=== PATIENT | male | born 2005 | race Caucasian/White ===

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

== ENCOUNTER → 2024-11-08 | Outpatient (CLI) | payer OTHER, BC, SELFPAY ==
--- OUTSIDE RECORDS SUMMARY | 2024-11-08 21:23 | XMS RPT_ITS | CCD ---
Author Organization [facility] Care Team Providers Care Fibreglass Laminator Name Role Phone Dr. Fernando Rabago Primary Care Provider Dr. Fernando Rabago Referring Provider [phone] ALAN Coleman Attending Provider [phone] Fernnado Rabago Referring Unavailable Vaccariello, Fernando Primary Care Unavailable Timothy Coleman Attending Unavailable Vaccariello, Fernando Referring Unavailable Vaccariello, Fernando Primary Care Unavailable David PHILLIPS, Timothy Attending Unavailable Vaccariello, Fernando Primary Care Unavailable Karla PARKING ENFORCER, Markus Parks Referring Unav ailable Karla PARKING ENFORCER, Markus Parks Attending Unav ailable Vaccariello, Fernando Referring Unavailable Vaccariello, Fernando Primary Care Unavailable Timothy Coleman Attending Unavailable No, Physician Primary Care Provider Unavailabl MARKUS Kellogg Primary Care Unavailable RUBEN, MARELY BALBUENA Referring Unavailab le RUBEN, MAREYL BALBUENA Attending Unavailab le RUBEN, MARELY BALBUENA Referring Unavailab le RUBEN, MARELY BALBUENA Attending Unavailab MARKUS Rodriguez Primary Care Unavailable Dr. Fernando Rabago MD Primary Care Provider Dr. Fernando Rabago MD Referring Provider Gene Khan Attending Provider Problems Problem Classification Problem Date Documented Da te Episodic/Chronic Essential hypertension (1 source) Hypertensive disorder; Translations: [Essential (primary) hypertension] 11-08-2024 Chronic Open wounds of extremities (4 sources) Laceration of right index finger; Translations: [Laceration without foreign body of right index finger without damage to nail, initial encounter] Onset: 11-09-2022 11-03-2022 Episodic Other upper respiratory infections (1 source) Sore throat symptom; Translations: [Acute pharyngitis, unspecified] 11-08-2024 Episodic Spondylosis; intervertebral disc disorders; other back problems (2 sources) Radiculopathy, cervical region; Translations: [Radiculopathy, cervical region] Onset: 03-08-2024 Episodic Superficial injury; contusion (3 sources) Foreign body - finger; Translations: [Superficial foreign body of unspecified finger, initial encounter] Onset: 11-09-2022 11-03-2022 Episodic Results Test Name Value Interpretation Reference Range Facility MR CERVICAL SPINE WITHOUT CO NTRASTon 03-08-2024 MR CERVICAL SPINE WITHOUT CONTRAST EXAMINATION: MRI cervical spine 03/08/2024 HISTORY: ORDERING SYSTEM PROVIDED HISTORY: Myelopathy, acute, cervical spine, TECHNOLOGIST PROVIDED HISTORY: Injury/Trauma Reason for exam: pinching and shooting pain on rt side of neck into rt shoulder Encounter Type: Subsequent/Follow-up Mechanism of injury: football ORDERING SYSTEM PROVIDED DIAGNOSIS CODES: M54.12 Cervical radiculopathy, acute COMPARISON STUDY: Radiographs cervical spine 03/06/2024. TECHNIQUE: Sagittal T1, T2, STIR, axial T2 and T2 gradient echo images of the cervical spine were obtained. 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 There is also fusion of the C2-3 facet joints bilaterally. There is mild anterolisthesis of C3 on C4 of 2 mm again seen. However, there is no MRI evidence of a ligamentous injury. No compression fracture is seen. No prevertebral soft tissue swelling. There is straightening of the normal cervical lordosis. There is mild disc desiccation at the C3-4 and C4-5 level. The bone marrow signal intensity is age-appropriate. The craniovertebral junction appears within normal limits. C2-C3 level: No significant disc protrusion, spinal canal stenosis, or foraminal narrowing is seen. C3-4 level: No significant disc protrusion, spinal canal stenosis, or foraminal narrowing is seen. C4-5 level: No significant disc protrusion, spinal canal stenosis, or foraminal narrowing is seen. C5-6 level: No significant disc protrusion, spinal canal stenosis, or foraminal narrowing is seen. C6-7 level: No significant disc protrusion, spinal canal stenosis, or foraminal narrowing is seen. C7-T1 level: No significant disc protrusion, spinal canal stenosis, or foraminal narrowing is seen. The signal intensity of the cervical spinal cord appears grossly within normal limits. No paraspinal muscle edema is seen. IMPRESSION: 1. No significant disc protrusion, spinal canal stenosis, foraminal narrowing is seen. 2. There is mild anterolisthesis of C3 on C4 of 2 mm, but there is no MRI evidence of a ligamentous injury and this is of doubtful clinical significance. 3. There is straightening of the normal cervical lordosis. This may be related to patient positioning for this study or could be related to an underlying muscular spasm. 4. 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 Workstation ID: [id number] Dictated by: TOM CLAROS on [facility] Mar 09, 2024 9:02:57 AM EDT Transcribed by: TOM CLAROS on [facility] Mar 09, 2024 9:02:57 AM EDT Finalized by: TOM CLAROS on [facility] Mar 09, 2024 9:02:57 AM EDT Normal [facility] Comment on above: Order Comment: Injur y/Trauma or Illness?:Injury/Trauma How long have you had these symptoms (acute/chronic)?:Chronic Reason for exam?:pinching and shooting pain on rt side of neck into rt shoulder Type of Exam?:Subsequent/Follow-up Mechanism of injury?:football XR CERVICAL SPINE AP/LATon 1 XR CERVICAL SPINE AP/LAT EXAMINATION: XR CERVICAL SPINE AP/LAT DATE: 03/06/2024. HISTORY: cervical radiculopathy Injury/Trauma or Illness?:Injury/Trauma How long have you had these symptoms (acute/chronic)?:Acute Reason for exam?:cervical radiculopathy History of cancer?:n Surgeries, chemotherapy, or radiation?:n M54.12 Cervical radiculopathy COMPARISON: Subsequently performed MRI of the cervical spine from [facility] on 03/08/2024 was reviewed. No antecedent studies of the cervical spine are available for correlation. TECHNIQUE: AP, lateral, and swimmer's lateral views were submitted. FINDINGS: Seven cervical segments are described. Congenital fusion of C2-3 is are shown. Vertebral body heights are well maintained throughout the cervical region. Reversal of cervical lordosis is shown. No fracture or wendi bone destruction. Prevertebral soft tissues appear normal. No cervical rib. Visualized lung apices are clear. IMPRESSION: 1. 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 2. Reversal of cervical lordosis could relate to muscle spasm or simply positioning. PRR/lab Workstation ID: [id number] Dictated by: ILAN STEELE on [facility] Mar 09, 2024 10:21:56 AM EDT Transcribed by: AARON ALLEN on WedMar 09, 2024 10:30:12 AM EDT Finalized by: ILAN STEELE on [facility] Mar 09, 2024 2:30:19 PM EDT Normal [facility] Comment on above: Order Comment: Injur y/Trauma or Illness?:Injury/Trauma How long have you had these symptoms (acute/chronic)?:Acute Reason for exam?:cervical radiculopathy History of cancer?:n Surgeries, chemotherapy, or radiation?:n Type of Exam?:Initial Mechanism of injury?:football injury Sickle Hgb Solubilityon 11-16 HgbSOL,SICKLE Negative Normal Negative [facility] Comment on above: Result Comment: Sinc e a variety of conditions and other abnormal hemoglobins in addition to Hemoglobin S may give false- positive results, positive Hemoglobin Solubility tests should be confirmed by hemoglobin fractionation testing. Performed at: [facility] [address] [id number] Fleet Maintenance Foreman: Berhane Jung PhD, Phone: [phone] Performed By: #### [id number] #### [facility] [address] [place] [address], [address] Hemoglobin S Solubility test Ql (Bld)Ordered By: Markus Acosta on 12-11-2022 Hemoglobin S Ql (Bld) Negative Negative [facility] Comment on above: Since a variety of c onditions and other abnormalhemoglobins in addition to Hemoglobin S may give false-positive results, positive Hemoglobin Solubility testsshould be confirmed by hemoglobin fractionation testing.Performed at: [facility] [address] [id number] Director: Berhane Jung PhD, Phone: [phone] Finger(s) Min 2 Viewson 10-16 Finger(s) Min 2 Views [facility] [address] [place] [address] Finger(s) Min 2 Views MR#: [id number] Acct: [id number] Name: JAVIER ZULETA Rep #: [id number] : 2005 M 17 From: Cris Almanza MD PCP: Dr. Fernando Rabago MD Status: REG AMB Study: Finger(s) Min 2 Views Date of Exam: 11/03/22 Exam# [id number] Ordering Dr: Timothy Hernandez INDICATION: staple gun hit tip of right index finger EXAMINATION/TECHNIQUE: X-RAY - RIGHT HAND XR Fingers Min 2 Views 2 VIEWS COMPARISON: FINDINGS: SOFT TISSUES: No soft tissue swelling or gas. No radiopaque foreign body. BONES/JOINTS: No acute fracture or subluxation.. Normal alignment. Preservation of the joint space.. No sclerotic or destructive changes observed. RAD/Finger(s) Min 2 Views IMPRESSION: Negative. Electronically Signed: Cris Almanza MD at 9:17 EDT , CC: ALAN Hernandez; Dr. Fernando Rabago MD Post Office Markup Clerk: Signed Normal [facility] Office Visit Reporton 2022 Office Visit Report [facility] [address] [place] [address] OFFICE VISIT Date of Service: 11/03/22 MR#: [id number] Acct: [id number] Patient: JAVIER ZULETA Rep #: [id number] : 2005 Provider: ALAN Hernandez Age/Sex: 17/M Location: [facility] [place] Status: Signed Intake Intake Visit Reasons: POST ACCIDENT/ DRUG/BAT/MULLET Chief Complaint: staple gun to right index finger Allergies No Known Allergies Allergy (Verified 12/28/15 19:21) Office Procedures [facility] Billing Sheet Testing Breath Alcohol in [facility]: Yes Post-Accident Non-DOT Breath Alcohol Test: Yes Post-Accident NON-DOT Drug Screen in [facility]: Yes 11/03/22 1418 Date Timothy Lux Signature: Date (if applicable) CC: Normal [facility] Urgent Care Visit Reporton 0 11-03-2022 Urgent Care Visit Report [facility] [address] [place] [address] OFFICE VISIT Date of Service: 11/03/22 MR#: [id number] Acct: [id number] Name: JAVIER ZULETA Rep #: [id number] : 2005 Provider: ALAN Hernandez Age/Sex: 17/M Location: [facility] [place] Status: Signed Intake Intake Visit Reasons: STAPLE RT INDEX FINGER/ MULLET Chief Complaint: staple gun to right index finger Allergies No Known Allergies Allergy (Verified 05/13/15 19:21) PFSH Social History Smoking Status: Never smoker HPI HPI Chief Complaint: staple gun to right index finger Details: JAVIER ZULETA, is a 17 M who presents to the office today for staple gun to right index finger. He was sent over to get checked to make sure there is not staple still in the finger. This occurred this AM. He appears to have a slight nonbleeding very shallow laceration to the tip of the finger. There is very mild pain. He is not sure if it cut the tip of the finger or is some actually penetrated. One end is slightly thicker and may be a wound. He states the zo were very small zo. He cannot feel a foreign body sensation, but also states he is not sure. He has no numbness or tingling. He does not know when his last tetanus shot was. ROS Const Constitutional: No chills, fatigue or fever(s) Skin Skin: Positive for wounds; No redness or sores Endo Endocrine: No fatigue Exam Const General: cooperative, healthy appearing, comfortable, no acute distress, well developed and well groomed Nutritional Appearance: average body habitus and well nourished Orientation: alert, awake and oriented x3 HENMT Head: normocephalic and atraumatic Resp Effort Inspection: normal respiratory effort, able to speak in complete sentences, symmetric chest movement and no cough Skin Other: very shallow linear approx 1 cm lac to tip of right index finger. no fb palpable. sensation intact. no bleeding. ROM / strength normal. Coding Level of Care Code Off vis,new,level 3 Diagnoses Laceration of right index finger S61.210A Assessment and Plan Assessment and Plan (1) Laceration of right index finger: Status: Acute Plan: Sent specifically to get checked to see if there is any remaining staple in the finger. He has no FB sensation but is not sure. Xray obtained as the zo are metal and should appear. Interpreted by radiology: negative. Superficial lac with no FB - cleaned with hibiclens. Covered with thin layer bacitracin and band aid. Watch for signs of infection. No restrictions. Return to work today. Keep wound clean and covered with band aid when working. Tetanus shot administered since he is unsure when his last one was. [employer] 14 and FROI filled out No follow up unless any further complications. Orders: Orders Finger(s) Min 2 Views Today S60.131E - Superficial foreign body of unspecified finger, initial encounter 11/03/22 9108 Date Timothy PHILLIPS Cosigner Signature: Date (if applicable) CC: Normal [facility] ED PROV NOTEon 05-29-2021 ED PROV NOTE HNO ID: [id number] Author: Jaun Saleh Service: ? Author Type: Physician Type: ED Provider Notes Filed: 06/23/2021 12:05 AM Note Text: [place] [address] HEALTH INFORMATION MANAGEMENT EMERGENCY DEPARTMENT REPORT Patient: JAVIER ZULETA KEVBEE Choi M.D. [id number] [birth year] 16 M Status: [facility] ER ED Date of Service: 05/28/21 CHIEF COMPLAINT: Reported to be headache and neck pain. HISTORY OF PRESENT ILLNESS: The patient is a 16-year-old white male, who presents with complaint of headache and neck pain. The patient stated he was wrestling for a high school wrestling match. He was thrown to the mat. He struck his head. He believes he lost consciousness briefly. He does complain of some pain in his neck. No extremity numbness, weakness, or tingling. The patient was transported to the hospital by EMS and was placed on a backboard and C-collar. REVIEW OF SYSTEMS: CONSTITUTIONAL: No fevers or chills. HEENT: No rhinorrhea, congestion, or sore throat. CARDIOVASCULAR: No chest pain or palpitations. RESPIRATORY: No shortness of breath or cough. GASTROINTESTINAL: No abdominal pain, nausea, or vomiting. MUSCULOSKELETAL: Positive for neck pain. No extremity weakness. NEUROLOGIC: Positive for headache. No numbness or paresthesias. All other systems are reviewed and negative. PAST MEDICAL HISTORY: None. PAST SURGICAL HISTORY: None. SOCIAL HISTORY: No tobacco, ethanol, or recreational drug use. MEDICATIONS: Reviewed, please see MRO. ALLERGIES: No known drug allergies. FAMILY HISTORY: Reported to be none. PHYSICAL EXAMINATION: VITAL SIGNS: Blood pressure , temperature 98.5, pulse , respiratory rate of 16, and pulse oximetry 99% on room air. GENERAL: A well-developed, well-nourished male, resting comfortably. SKIN: Warm and dry. No rash or lesions. HEAD: Normocephalic and atraumatic. No palpable defects of the skull. EARS: Clear bilaterally with no hemotympanum and no retroauricular hematoma. EYES: Ocular examination reveals pupils to be equal, round, and reactive to light briskly. THROAT: Examination of the oropharynx shows mucous membranes to be moist; no erythema, exudate, or lesions. CARDIOVASCULAR: Reveals normal S1 and S2; regular rate and rhythm; no murmurs, gallops, or rubs. RESPIRATORY: Reveals breath sounds clear to auscultation bilaterally with no wheezes, rales , or rhonchi. ABDOMEN: Soft. Positive bowel sounds. There are no apparent signs. MUSCULOSKELETAL: Reveals some diffuse midline tenderness of the patient's cervical spine. No step-offs. There is no midline tenderness to palpation of the thoracolumbar spine. Strength is 5/5 in the bilateral upper and lower extremities. NEUROLOGICAL: Reveals the patient to be alert and oriented x3. Cranial nerves 2 through 12 are grossly intact. GCS is 15. There are no focal deficits appreciated. MEDICAL DECISION MAKING: I did review the patient's electronic medical records. CT scan of the head and cervical spine was read by the Radiology as no acute abnormalities at this point in time. The patient at this point in time I believe is appropriate for discharge with symptomatic treatment. at this time. IMPRESSION: 1. Concussion. 2. Cervical strain. PLAN: Will be for discharge. Follow up with the primary provider. Return otherwise for any new or worsening symptoms. The patient and family are aware of the management plan, and they are in agreement. Report#: Dict ID [id number] / Int ID [id number] 06/22/21 2359 JAUN SALEH M.D. cc: JAUN SALEH M.D. << Signature on File>> Reported By: JAUN SALEH M.D. Signed By: JAUN SALEH M.D. Tests performed at: [facility] [address] [place] [address] Normal [facility] EMERGENCY DEPARTMENT REPORTo n 05-29-2021 EMERGENCY [place]PARTMENT [place] [address] HEALTH INFORMATION MANAGEMENT EMERGENCY DEPARTMENT REPORT Patient: JAVIER ZULETA JAUN SALEH M.D. [id number] [birth year] 16 M Status: [facility] ER ED Date of Service: 05/28/21 CHIEF COMPLAINT: Reported to be headache and neck pain. HISTORY OF PRESENT ILLNESS: The patient is a 16-year-old white male, who presents with complaint of headache and neck pain. The patient stated he was wrestling for a high school wrestling match. He was thrown to the mat. He struck his head. He believes he lost consciousness briefly. He does complain of some pain in his neck. No extremity numbness, weakness, or tingling. The patient was transported to the hospital by EMS and was placed on a backboard and C-collar. REVIEW OF SYSTEMS: CONSTITUTIONAL: No fevers or chills. HEENT: No rhinorrhea, congestion, or sore throat. CARDIOVASCULAR: No chest pain or palpitations. RESPIRATORY: No shortness of breath or cough. GASTROINTESTINAL: No abdominal pain, nausea, or vomiting. MUSCULOSKELETAL: Positive for neck pain. No extremity weakness. NEUROLOGIC: Positive for headache. No numbness or paresthesias. All other systems are reviewed and negative. PAST MEDICAL HISTORY: None. PAST SURGICAL HISTORY: None. SOCIAL HISTORY: No tobacco, ethanol, or recreational drug use. MEDICATIONS: Reviewed, please see MRO. ALLERGIES: No known drug allergies. FAMILY HISTORY: Reported to be none. PHYSICAL EXAMINATION: VITAL SIGNS: Blood pressure , temperature 98.5, pulse , respiratory rate of 16, and pulse oximetry 99% on room air. GENERAL: A well-developed, well-nourished male, resting comfortably. SKIN: Warm and dry. No rash or lesions. HEAD: Normocephalic and atraumatic. No palpable defects of the skull. EARS: Clear bilaterally with no hemotympanum and no retroauricular hematoma. EYES: Ocular examination reveals pupils to be equal, round, and reactive to light briskly. THROAT: Examination of the oropharynx shows mucous membranes to be moist; no erythema, exudate, or lesions. CARDIOVASCULAR: Reveals normal S1 and S2; regular rate and rhythm; no murmurs, gallops, or rubs. RESPIRATORY: Reveals breath sounds clear to auscultation bilaterally with no wheezes, rales , or rhonchi. ABDOMEN: Soft. Positive bowel sounds. There are no apparent signs. MUSCULOSKELETAL: Reveals some diffuse midline tenderness of the patient's cervical spine. No step-offs. There is no midline tenderness to palpation of the thoracolumbar spine. Strength is 5/5 in the bilateral upper and lower extremities. NEUROLOGICAL: Reveals the patient to be alert and oriented x3. Cranial nerves 2 through 12 are grossly intact. GCS is 15. There are no focal deficits appreciated. MEDICAL DECISION MAKING: I did review the patient's electronic medical records. CT scan of the head and cervical spine was read by the Radiology as no acute abnormalities at this point in time. The patient at this point in time I believe is appropriate for discharge with symptomatic treatment. at this time. IMPRESSION: 1. Concussion. 2. Cervical strain. PLAN: Will be for discharge. Follow up with the primary provider. Return otherwise for any new or worsening symptoms. The patient and family are aware of the management plan, and they are in agreement. Report#: Dict ID [id number] / Int ID [id number] 06/22/21 2359 JAUN SALEH M.D. cc: JAUN SALEH M.D. << Signature on File>> Reported By: JAUN SALEH M.D. Signed By: JAUN SALEH M.D. Tests performed at: [address] [address] Normal [facility] CT BRAIN WITHOUT CONTRAST- C TBon 05-28-2021 CT BRAIN WITHOUT CONTRAST- CTB [address] [address] Name: JAVIER ZULETA Phys: JAUN SALEH M.D. : [birth year] Age: 16 Sex: M Acct: [id number] Loc: ED Exam Date: 05/28/21 Status: REG ER Radiology No.: Unit Number: [id number] Exam # Type/Exam [id number] CT / CT BRAIN WITHOUT CONTRAST- CTB EXAMINATION: CT OF THE HEAD WITHOUT CONTRAST05/28/2021 8:[address] HEAD/BRAIN WITHOUT CONTRAST EXAM DESCRIPTION: TECHNIQUE: CT of the head was performed without the administration of intravenous contrast. Routine helical CT images were obtained of the head without the use of IV contrast. Coronal and sagittal reformats were obtained. Dose lowering techniques were utilized to include automated exposure control, adjustment of the mA and/or kV according to patient size, and use of iterative reconstruction technique. COMPARISON: None available HISTORY: ORDERING SYSTEM PROVIDED HISTORY: TECHNOLOGIST PROVIDED HISTORY: Reason for Exam: trauma FINDINGS: The size, density, and morphology of the brain and CSF containing spaces appears normal. There is no evidence of mass, midline shift, hemorrhage, or infract. The ventricles, cortical sulci, and subarachnoid cisterns appear unremarkable. There are no extra-axial fluid collections. No regions of pathologic attenuation are evident. Regions of the orbits and paranasal sinuses included within the field of view are unremarkable. There is no displaced fracture or osseous neoplasm. The extracalvarial soft tissues appear unremarkable. IMPRESSION: No acute intracranial pathology. COMMENT: Changes resultant from ischemia (even significant ischemia) may often be inapparent on CT exam, particularly if imaged early. Additionally, early changes due to neoplastic or inflammatory processes can be subtle to the extent that they are not prospectively noted. Therefore, if symptoms persist, or clinical suspicion for pathology remains, further evaluation may be obtained with MRI. Electronically signed By Prema Mcarthur MD 05/28/2021 10:23:08 PM EST Workstation ID : [id number] < > Reported By: PREAM MCARTHUR M.D. Signed In Fluency By: PREMA MCARTHUR M.D. << Signature on File>> Reported By: PREMA MCARTHUR M.D. Signed By: PREMA MCARTHUR M.D. Tests performed at: [address] [address] Normal [facility] CT CERVICAL SPINE WO CONTRAS Ton 05-28-2021 CT CERVICAL SPINE WO CONTRAST [address] [address] Name: JAVIER ZULETA Phys: JAUN SALEH M.D. : [birth year] Age: 16 Sex: M Acct: [id number] Loc: ED Exam Date: 05/28/21 Status: REG ER Radiology No.: Unit Number: [id number] Exam # Type/Exam [id number] CT / CT CERVICAL SPINE WO CONTRAST EXAMINATION: CT OF THE CERVICAL SPINE WITHOUT CONTRAST05/28/2021 8:[address] CERVICAL SPINE WITHOUT CONTRAST EXAM DESCRIPTION: TECHNIQUE: CT of the cervical spine was performed without the administration of intravenous contrast. Multiplanar reformatted images are provided for review. Axial CT images were obtained of the cervical spine without the use of IV contrast. Dose lowering techniques were utilized to include automated exposure control, adjustment of the mA and/or kV according to patient size, and use of iterative reconstruction technique. COMPARISON: None available HISTORY: ORDERING SYSTEM PROVIDED HISTORY: TECHNOLOGIST PROVIDED HISTORY: Reason for Exam: trauma FINDINGS: The cervical vertebral bodies are in normal alignment without acute fracture or subluxation. The vertebral body heights and disc space heights are maintained. Rudimentary disc at C2-C3. The paraspinal soft tissues are within normal limits. The lung apices are clear. IMPRESSION: No evidence of cervical fracture Electronically signed By Prema Mcarthur MD 05/28/2021 10:27:01 PM EST Workstation ID : [id number] < > Reported By: PREMA MCARTHUR M.D. Signed In Fluency By: PREMA MCARTHUR M.D. << Signature on File>> Reported By: PREMA MCARTHUR M.D. Signed By: PREMA MCARTHUR M.D. Tests performed at: [address] [address] Normal [facility] Vital Signs Date Time Vital Sign Value Performing Clinician Facility 11-08-2024 06:32-0400 Body height 180.[address] Fernando Rabago MD Work Phone: [facility] 11-08-2024 06:32-0400 Body mass index (BMI) [Ratio] 41.4 kg/m2 Dr. Fernando Rabago MD Work Phone: [facility] 11-08-2024 06:32-0400 Body temperature 98.2 [degF] Dr. Fernando Rabago MD Work Phone: [facility] 11-08-2024 06:32-0400 Body weight 134.[address] Fernando Rabago MD Work Phone: [facility] 11-08-2024 06:32-0400 Diastolic blood pressure 74 mm[Hg] Dr. Fernando Rabago MD Work Phone: [facility] 11-08-2024 06:32-0400 Heart rate 64 /min Dr. Fernando Rabago MD Work Phone: [facility] 11-08-2024 06:32-0400 Respiratory rate 16 /min Dr. Fernando Rabago MD Work Phone: [facility] 11-08-2024 06:32-0400 SaO2% (BldA) [Mass fraction] 98 % Dr. Fernando Rabago MD Work Phone: [facility] 11-08-2024 06:32-0400 Systolic blood pressure 134 mm[Hg] Dr. Fernando Rabago MD Work Phone: [facility] 01-28-2023 09:09-0400 Body height 182.9 cm Kendell Henderson DO Work Phone: [facility] 01-28-2023 09:09-0400 Body temperature 98.01 [degF] Kendell Beatriz DO Work Phone: [facility] 01-28-2023 09:09-0400 Diastolic blood pressure 82 mm[Hg] Kendell Beatriz DO Work Phone: [facility] Comment on above: Just got done working out 01-28-2023 09:09-0400 Heart rate 89 /min Kendell Beatriz DO Work Phone: [facility] 01-28-2023 09:09-0400 Respiratory rate 18 /min Kendell Beatriz DO Work Phone: [facility] 01-28-2023 09:09-0400 SaO2% (BldA) [Mass fraction] 99 % Kendell Beatriz DO Work Phone: [facility] 01-28-2023 09:09-0400 Systolic blood pressure 150 mm[Hg] Kendell Beatriz DO Work Phone: [facility] Comment on above: Just got done working out Encounters Encounter Date Encounter Type Care Provider Facility Start: 11-08-2024 End: 11-08-[address] Fernando Rabago MD Work Phone: [facility] Work Phone: Start: 11-08-2024 End: 11-08-2024 Patient encounter procedure Gene Capps [place] [facility] Work Phone: Start: 03-08-2024 End: 03-08-2024 ambulatory MARKUS ACOSTA [facility] Start: 03-06-2024 End: 03-06-2024 ambulatory MARELY MIRANDA [facility] Start: 01-28-2023 End: 01-28-2023 Patient encounter procedure Kendell Traore Beatriz DO Work Phone: [facility] Comment on above: Well adult exam Start: 01-28-2023 End: 01-28-2023 Patient encounter status Kendell Penaens DO Work Phone: [facility] Work Phone: Start: 12-16-2022 Encounter for genera l adult medical examination without abnormal findings Markus Acosta [employer] [facility] Start: 12-11-2022 End: 12-11-[address] Fernando Rabago Work Phone: [facility] Work Phone: Start: 12-11-2022 End: 12-11-[address] Fernando Rabago Work Phone: [facility] Start: 11-03-2022 End: 11-03-2022 ambulatory Fernando Rabago Facility:[facility] Start: 11-03-2022 End: 11-03-[address] Fernando Rabago Work Phone: [facility] Work Phone: Procedures Date Procedure Procedure Detail Performing Clinician Start: 11-03-2022 Diagnostic radiograp hy of finger Dr. Fernando Rabago Work Phone: Plan of Treatment Date Care Activity Detail Author Start: 12-04-2026 Tetanus vaccination Tetanus: Every 1 0yrs [facility] Start: 01-15-2023 Influenza vaccination Sequenti al Influenza Vaccine (#1) [facility] Start: 2022 Hepatitis C screening Hepatitis C Sc reening [facility] Start: 2019 HIV screening HIV Screening [facility] Start: 2016 Depression screening using PHQ-9 (Patient Health Questionnaire 9) score Depression Screening (PHQ-2/9) [facility] Start: 2007 History and physical examination, annual for health maintenance Wellness Visit [facility] Start: 2004 COVID-19 Vaccine (#1) COVID-19 Vacci ne (#1) [facility] Payers Date Payer Category Payer Unknown [id number] 2022 Self-pay 2022 Unknown [id number] 2021 Unknown [id number] 2004 Unknown [id number] [id number] 2004 Unknown [id number] [id number]. [id number] Unknown NYA [id number] Unknown [id number] [id number] Unknown [id number] [id number] [id number] Unknown [id number] [id number] Unknown [id number] 2.16.8 [id number] Social History Date Type Detail Facility Start: 11-03-2022 [facility] Start: 2005 Sex Assigned At Male [facility] Start: 2005 Sex Assigned At Not on file [facility] Gender identity Not on file [facility] Start: 11-08-2024 [facility] (finding[facility] Progress note 03-06-2024 Note Date & Type Note Facility 03-06-2024 Note 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 Doesn't remember one acute traumatic event, but reports symptoms have progressively been worsening in frequency and intensity. Reports sensation of burning sharp pain radiating from the lateral neck down the posterior aspect of upper arm and then over dorsum of forearm to the entire hand. Does report that the left upper extremity feels weak when this happens but then weakness sort of resolves. Has consistent neck pain and pinching sensation, but then we blocking or if being hit in the left shoulder, gets the severe sharp burning shooting byrson down the arm with weakness. Has never happened to the right side of neck. No prior neck injuries. Hx of left AC joint sprain. Physical Exam: Neck- near FROM, slight decrease in left sidebending; no midline tenderness, there is tenderness throughout the left trapezius muscle with hypertonicity; 5/5 strength with neck strength; 4+/5 with left upper extremity abduction, elbow extension, and intrinsic hand muscles; 5/5 strength testing RUE; positive Spurling's maneuver bilaterally Shoulder- FROM bilaterally; no tenderness to palpation; 5/5 strength with motions of the rotator cuff bilaterally; Pain with Frost, empty can, and O'briens; negative Speeds and cross arm adduction Neurovascular- sensation grossly intact to light touch throughout B/L upper extremities; RUE reflexes 2/4 and LUE reflexes demonstrated slight reduction in triceps and brachioradialis reflexes (1+/4); 4/5 intrinsic muscle strength on the left compared to 5/5 on the right; pluses normal/equal and capillary refill intact; negative Basurto's reflex bilaterally A/P: Acute cervical radiculopathy with signs of potential myelopathy vs brachial plexus neuropraxia -C-spine XR, followed by MRI r/o cord abnormality and foraminal stenosis -No contact activity allowed until cleared by physician -Ibuprofen 600 mg 2-3x times daily x 7-10 days Marely Miranda DO AUTHENTICATED BY MARELY MIRANDA, ON 03/06/2024 13:48:50 [facility] Ambulatory History of Present illness Narrative 01-28-2023 Kendell Henderson, - 01/28/2023 9:40 AM EDT Note Date & Type Note Facility 01-28-2023 History of Presen t illness Narrative [facility] Student [facility] Patient Name: Javier Zuleta Date: 01/28/23 Patient : 2005 Patient Age: 17 y.o. CC: Chief Complaint Patient presents with Annual Exam ECC ASSESSMENT / PLAN Problem List Items Addressed This Visit Other Well adult exam SUBJECTIVE Student seen for pre-participation physical. 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 Student denies medical problems and current symptoms. Patient denies physical and psychological limitations. OBJECTIVE PACU Vitals 01/28/23 0909 BP: (!) 150/82 Pulse: 89 Resp: 18 Temp: 98 F (36.7 C) SpO2: 99% General: Well-appearing, NAD Head: Normocephalic, atraumatic Eyes: PERRLA, EOMI ENT: TMs and auditory canals clear, nasal turbinates not erythematous or hypertrophied, pharynx clear, no intraoral lesions, MMM Neck: Supple, no tender lymphadenopathy, no thyroid hypertrophy or asymmetry Cardiovascular: Heart RRR, no murmur, rub, or gallop. Peripheral pulses equal. Normal capillary refill. Lungs: CTAB, no wheezing, crackles, or rales. No increased work of breathing. Abdomen: Soft, non-tender to palpation, no organomegaly, rebound, or guarding. Extremities: Warm and well-perfused, no peripheral edema, no obvious deformities, normal active ROM. Neurologic: Strength, sensation to light touch, and DTRs are normal in bilateral upper and lower extremities. Derm: No rashes or skin color change Psych: Well-groomed, mood stable, affect congruent, speech clear, thought content linear Ganesh Henderson DO documented in this encounter [facility] Evaluation note Note Date & Type Note Facility Evaluation note Diagnosis Onset Date Laceration of right index finger acute [facility] Work Phone: Evaluation note Note Date & Type Note Facility Evaluation note Diagnosis Well adult exam Routine general medical examination at a health care facility documented in this encounter [facility] Evaluation note Note Date & Type Note Facility Evaluation note Diagnosis Onset Date Resolution HTN (hypertension) noneactive October 162024 6:13am Sore throat noneactive November 08 6:13am [facility] Work Phone: Reason for referral (narrative) Note Date & Type Note Facility Reason for referral (narrative) No reason for referral information available [facility] Work Phone: Summary Purpose Family History No Family History Records FoundNo Family History Records FoundNo Family History Records FoundNo Family History Records FoundNo Family History Records Found Advance Directives Advance Directive Response Recorded Date/ Time Living Will No May 13 015 8:29pm Power of Mortician Supplies Sales Representative No May 13, 2015 8:29pm Chief Complaint and Reason for Visit Chief Complaint STAPLE RT INDEX FING ER/ MULLET POST ACCIDENT/ DRUG/BAT/MULLET 2 VIEW RT FINGER Reason for Visit Laceration of right index finger Chief Complaint Admit Date ST/REDNESS November 08, 2024 6:13 am Reason for Visit Admit Date HTN (hypertension) November 08, 2024 6:13 am Sore throat November 08, 2024 6:13 am Additional Source Comments (unrecognized sect ion and content) No Status Records FoundNo Status Records FoundNo Status Records FoundNo Status Records FoundNo Status Records Found INFORMATION SOURCE (unrecogn ized section and content) DATE CREATED AUTHOR 06/22/2021 [facility] DATE CREATED AUTHOR AUTHOR'S ORGANIZ ATION 06/22/2021 [facility] DATE CREATED AUTHOR AUTHOR'S ORGANIZ ATION 12/17/2022 [facility] DATE CREATED AUTHOR AUTHOR'S ORGANIZ ATION 03/08/2024 [facility] DATE CREATED AUTHOR AUTHOR'S ORGANIZ ATION 06/02/2024 [facility] ospital Care Teams (unrecognized sec tion and content) Team Status: Active Member Role Status Dates Dr. Fernando Rabago MD Family Provider Active Dr. Fernando Rabago MD Primary Care Provider Active Team Status: Inactive Member Role Status Dates Dr. Fernando Rabago MD Primary Care Provider, Refer ring Provider Active Timothy PHILLIPS PA Attending Provider Active Team Status: Inactive Member Role Status Dates Dr. Fernando Rabago MD Primary Care Provider Active Markus Acosta [employer], [employer]-C Attending Provider, [facility] Active [employer] Relationship Specialty Start Date End Date No, Physician [facility] PCP - General 12/22/22 Team Status: Inactive Member Role Status Dates Dr. Fernando Rabago MD Primary Care Provider Active Start: November 08, 2024 End: November 08, 2024 Dr. Fernando Rabago MD Referring Provider Active Start: November 08, 2024 End: November 08, 2024 Gene PHILLIPS, PA Attending Provider Active Start: November 08, 2024 End: November 08, 2024 Goals (unrecognized section and content) Goals may be documented in a n alternate sectionGoals may be documented in an alternate section Reason for Visit (unrecogniz ed section and content) Reason Comments Annual Exam ECC FOR RECORDS PERTAINING TO PATIENTS WHO ARE OR HAVE BEEN ENROLLED IN A CHEMICAL DEPENDENCY/SUBSTANCEABUSE PROGRAM, SOME INFORMATION MAY BE OMITTED. This clinical summary was aggregated from multiple sources. Caution should be exercised in using it in the provision of clinical care. This summary normalizes information from multiple sources, and as a consequence, information in this document may materially change the coding, format and clinical context of patient data. In addition, data may be omitted in some cases. CLINICAL DECISIONS SHOULD BE BASED ON THE PRIMARY CLINICAL RECORDS. [facility]. provides no warranty or guarantee of the accuracy or completeness of information in this document.
== END | disposition home or self-care (01) ==
LOC: LABSPEC 10:35
PROVIDERS: PCP Family Medicine; Visit Provider Physician Assistant
DX: J02.9 Acute pharyngitis, unspecified (principal)
CPT/HCPCS: 87070

== ENCOUNTER → 2025-02-08 | Outpatient (CLI) | payer OTHER, BC, SELFPAY ==
[2025-02-08 15:07] LABS: AST(SGOT) 23 U/L (<=37); Alanine Aminotransfer ALT/SGPT 30 U/L (<=46); Albumin, Serum 4.4 g/dL (3.5-5.0); Alkaline Phosphatase 86 U/L (40-129); Anion Gap 9 (5-15); BUN 15 mg/dL (4-19); BUN/Creat Ratio 12.7 RATIO (10-20); Calcium,Total 9.8 mg/dL (7.6-11.0); Carbon Dioxide 24.8 mmol/L (21.0-32.0); Chloride 106 mmol/L (98-108); Globulin 2.2 g/dL (2.2-4.2); Glucose 78 mg/dL (70-99); Potassium 4.8 mmol/L (3.3-5.1); Uric Acid 7.1 mg/dL (3.5-7.2)
== END | disposition home or self-care (01) ==
PROVIDERS: PCP Family Medicine; Referring Provider Nurse Practitioner Family; Visit Provider Nurse Practitioner Family
DX: M10.9 Gout, unspecified (principal)
CPT/HCPCS: 36415; 80053; 84550